=== PATIENT | male | born 1945 | race Caucasian/White ===

== ENCOUNTER 2017-08-29 14:04 | Observation (INO) ==
[2017-08-29] MEDS ORDERED: NITROGLYCERIN SL 0.4 MG TABLET SL PRN (14:24)
[2017-08-29] MEDS ORDERED: NITROGLYCERIN 2% OINT 1 INCH/GM PACK TOP STA (14:24)
[2017-08-29] MEDS ORDERED: ASPIRIN 325 MG TABLET PO STA (14:24)
[2017-08-29] MEDS ORDERED: ENOXAPARIN 100 MG/ML SYRINGE SUBCUT STA (14:24)
[2017-08-29] MEDS ORDERED: ASPIRIN 325 MG TABLET ONE (14:30)
[2017-08-29] MEDS ORDERED: NITROGLYCERIN 2% OINT 1 INCH/GM PACK TOP ONE (14:30)
[2017-08-29] MEDS ORDERED: NITROGLYCERIN SL 0.4 MG TABLET SL ONE (14:30)
[2017-08-29] MEDS ORDERED: ENOXAPARIN 100 MG/ML SYRINGE SUBCUT ONE (14:30)
[2017-08-29 14:48] LABS: Basophils % 0.7 % (0.0-0.8); Eosinophils # 0.1 10*3/uL (0.0-0.87); Eosinophils % 1.3 % (0.00-10.9); Hematocrit 43.7 VOL% (42.0-52.0); Immature Granulocytes % 0.8 %; Immature Granulocytes Absolute 0.05 #; Lymphocytes # 2.4 10*3/uL (1.4-4.0); Lymphocytes % 38.3 % (21.2-54.2); Mean Corpuscular HGB Conc 34.3 GM/DL (32-36); Mean Corpuscular Hemoglobin 32 PG (27-34); Mean Platelet Volume 9.4 FL (9.6-12.0); Monocytes # 0.6 10*3/uL (0.11-0.8); Monocytes % 10.3 % (1.7-12.7); Neutrophils % 48.6 % (38.7-73.9); Platelet Count 227 T/CUMM (130-400); Red Cell Distribution Width 13.2 % (9.3-17.3); White Blood Count 6.1 T/CUMM (4-12)
[2017-08-29 15:17] LABS: Albumin 3.7 G/DL (3.4-5.0); Bilirubin,Total 0.4 MG/DL (0.2-1.0); Calcium 9.2 MG/DL (8.5-10.1); Osmolality,Calculated 277.5 MOS/KG (273-304); Potassium 4.3 MMOL/L (3.5-5.1); Total Protein 7.9 G/DL (6.4-8.3)
[2017-08-29] MEDS ORDERED: MAGNESIUM SULF RIDER 2 GM in PREMIX 1 EACH IV PRN (15:25)
[2017-08-29] MEDS ORDERED: ACETAMINOPHEN 325 MG TABLET PO PRN ×2 (15:25→16:35)
[2017-08-29] MEDS ORDERED: MAGNESIUM SULF RIDER 4 GM in PREMIX 1 EACH IV PRN (15:25)
[2017-08-29] MEDS ORDERED: ONDANSETRON 4 MG/2 ML VIAL IV PRN (15:25)
[2017-08-29] MEDS ORDERED: MAGNESIUM HYDROXIDE SUSP 30 ML UDCUP PO PRN (17:45)
[2017-08-29] MEDS ORDERED: hydrALAZINE 20 MG/1 ML VIAL IV PRN (17:45)
[2017-08-29] MEDS ORDERED: ZALEPLON 5 MG CAPSULE PO PRN (17:45)
[2017-08-29] MEDS ORDERED: diphenhydrAMINE CAP 25 MG CAPSULE PO PRN (17:45)
[2017-08-29] MEDS ORDERED: INFLUENZA VIRUS VACCINE 0.5 ML SYRINGE IM ONE (17:51)
[2017-08-29] MEDS: CARVEDILOL 3.125 MG TABLET PO SCH (18:06)
[2017-08-29 19:07] LABS: Troponin I Only 0.113 NG/ML (0.00-0.045)
[2017-08-29] MEDS: ROSUVASTATIN 20 MG TABLET PO SCH (20:57)
[2017-08-29] MEDS: LISINOPRIL 10 MG TABLET PO SCH (20:57)
[2017-08-29] MEDS: BRIMONIDINE/TIMOLOL OPH SOLN 5 ML BOTTLE BOTH EYES SCH (20:59)
[2017-08-29] MEDS: TRAVOPROST 0.004% OPH SOLN 2.5 ML BOTTLE BOTH EYES SCH (20:59)
[2017-08-30 01:23] LABS: Troponin I Only 0.071 NG/ML (0.00-0.045)
[2017-08-30 03:55] LABS: Basophils # 0.1 10*3/uL (0.0-0.2); Basophils % 0.8 % (0.0-0.8); Eosinophils # 0.1 10*3/uL (0.0-0.87); Eosinophils % 1.3 % (0.00-10.9); Hematocrit 38.8 VOL% (42.0-52.0); Hemoglobin 13.2 GM/DL (14.0-18.0); Immature Granulocytes Absolute 0.06 #; Lymphocytes # 2.7 10*3/uL (1.4-4.0); Lymphocytes % 45.5 % (21.2-54.2); Mean Corpuscular Hemoglobin 32 PG (27-34); Mean Corpuscular Volume 93.5 FL (87-102); Mean Platelet Volume 9.7 FL (9.6-12.0); Monocytes # 0.7 10*3/uL (0.11-0.8); Neutrophils # 2.4 10*3/uL (1.4-7.4); Neutrophils % 39.4 % (38.7-73.9); Platelet Count 194 T/CUMM (130-400); Red Blood Count 4.15 MC/CUMM (3.8-5.5); Red Cell Distribution Width 13.2 % (9.3-17.3)
[2017-08-30 04:55] LABS: Osmolality,Calculated 276.5 MOS/KG (273-304); Potassium 4.2 MMOL/L (3.5-5.1)
[2017-08-30] MEDS ORDERED: diphenhydrAMINE CAP 25 MG CAPSULE PO ONE (07:00)
[2017-08-30] MEDS ORDERED: DIAZEPAM 5 MG TABLET PO ONE (07:00)
[2017-08-30] MEDS: LISINOPRIL 10 MG TABLET PO SCH ×3 (07:33→21:29)
[2017-08-30] MEDS: CARVEDILOL 3.125 MG TABLET PO SCH ×2 (07:33→10:39)
[2017-08-30] MEDS: AMIODARONE 200 MG TABLET PO SCH ×2 (07:33→10:38)
[2017-08-30] MEDS ORDERED: NITROGLYCERIN DRIP 50 MG/250 ML BOTTLE IV ONE (07:49)
[2017-08-30] MEDS ORDERED: fentaNYL 100 MCG/2 ML VIAL ONE (07:49)
[2017-08-30] MEDS ORDERED: MIDAZOLAM 2 MG/2 ML VIAL ONE (07:49)
[2017-08-30] MEDS ORDERED: VERAPAMIL 5 MG/2 ML VIAL ONE (07:50)
[2017-08-30 07:51] LABS: Troponin I Only 0.027 NG/ML (0.00-0.045)
[2017-08-30] MEDS ORDERED: ENOXAPARIN 60 MG/0.6 ML SYRINGE ONE (07:55)
[2017-08-30] MEDS ORDERED: EPTIFIBATIDE 20,000 MCG/10 ML VIAL ONE (08:04)
[2017-08-30] MEDS ORDERED: ASPIRIN CHEW 81 MG TABLET PO ONE (08:25)
[2017-08-30] MEDS ORDERED: TICAGRELOR 90 MG TABLET ONE (08:25)
[2017-08-30] MEDS: MULTIVITAMIN (CENTRUM) TABLET PO SCH (10:08)
[2017-08-30] MEDS: PANTOPRAZOLE 40 MG TABLET PO SCH (10:08)
[2017-08-30] MEDS: SODIUM CHLORIDE 0.45% 1,000 ML IV SCH ×2 (10:08→17:40)
[2017-08-30] MEDS: ASPIRIN EC 81 MG TABLET PO SCH (10:08)
[2017-08-30] MEDS: BRIMONIDINE/TIMOLOL OPH SOLN 5 ML BOTTLE BOTH EYES SCH ×2 (10:38→21:32)
[2017-08-30] MEDS: TICAGRELOR 90 MG TABLET PO SCH ×2 (10:38→21:29)
[2017-08-30 10:48] LABS: Troponin I Only 0.037 NG/ML (0.00-0.045)
[2017-08-30 16:29] LABS: Troponin I Only 0.084 NG/ML (0.00-0.045)
[2017-08-30] MEDS: ROSUVASTATIN 20 MG TABLET PO SCH (21:30)
[2017-08-30] MEDS: TRAVOPROST 0.004% OPH SOLN 2.5 ML BOTTLE BOTH EYES SCH (21:32)
[2017-08-31 05:11] LABS: Basophils % 0.5 % (0.0-0.8); Eosinophils # 0.1 10*3/uL (0.0-0.87); Eosinophils % 1.4 % (0.00-10.9); Hematocrit 38.9 VOL% (42.0-52.0); Hemoglobin 13.4 GM/DL (14.0-18.0); Immature Granulocytes % 0.9 %; Immature Granulocytes Absolute 0.07 #; Lymphocytes % 25.1 % (21.2-54.2); Mean Corpuscular HGB Conc 34.4 GM/DL (32-36); Mean Corpuscular Hemoglobin 32 PG (27-34); Mean Corpuscular Volume 93.7 FL (87-102); Mean Platelet Volume 9.7 FL (9.6-12.0); Monocytes % 12.2 % (1.7-12.7); Neutrophils # 4.7 10*3/uL (1.4-7.4); Neutrophils % 59.9 % (38.7-73.9); Platelet Count 196 T/CUMM (130-400); Red Blood Count 4.15 MC/CUMM (3.8-5.5); Red Cell Distribution Width 13.2 % (9.3-17.3); White Blood Count 7.9 T/CUMM (4-12)
[2017-08-31 05:45] LABS: Calcium 8.6 MG/DL (8.5-10.1); Osmolality,Calculated 277.4 MOS/KG (273-304)
[2017-08-31] MEDS: LISINOPRIL 10 MG TABLET PO SCH (08:38)
[2017-08-31] MEDS: PANTOPRAZOLE 40 MG TABLET PO SCH (08:38)
[2017-08-31] MEDS: AMIODARONE 200 MG TABLET PO SCH (08:39)
[2017-08-31] MEDS: TICAGRELOR 90 MG TABLET PO SCH (08:39)
[2017-08-31] MEDS: MULTIVITAMIN (CENTRUM) TABLET PO SCH (08:39)
[2017-08-31] MEDS: BRIMONIDINE/TIMOLOL OPH SOLN 5 ML BOTTLE BOTH EYES SCH (08:40)
[2017-08-31] MEDS: ASPIRIN EC 81 MG TABLET PO SCH (08:45)
[2017-08-31 11:53] VITALS: BP 154/100
== END 2017-08-31 14:28 | disposition home or self-care (01) ==
LOC: N.EDINP 14:04 → N.ED 14:04 → N.TELEN 17:29
PROVIDERS: ADMIT Internal Medicine Interventional Cardiology; ATTEND Internal Medicine Interventional Cardiology
PROC: CLCCHCL (ICD-10-PCS; 2017-08-30 08:15)

== ENCOUNTER 2019-05-22 23:30 | Observation (INO) ==
[2019-05-23] MEDS ORDERED: ASPIRIN 325 MG TABLET PO STA (00:17)
[2019-05-23 00:46] LABS: Basophils % 0.4 % (0.0-0.8); Hematocrit 39.7 VOL% (42.0-52.0); Hemoglobin 12.7 GM/DL (14.0-18.0); Immature Granulocytes % 0.6 %; Immature Granulocytes Absolute 0.04 #; Lymphocytes # 0.9 10*3/uL (1.4-4.0); Lymphocytes % 12.6 % (21.2-54.2); Mean Corpuscular Volume 95.9 FL (87-102); Mean Platelet Volume 9.4 FL (9.6-12.0); Monocytes % 1.3 % (1.7-12.7); Neutrophils % 85.1 % (38.7-73.9); Platelet Count 203 T/CUMM (130-400); Red Blood Count 4.14 MC/CUMM (3.8-5.5); Red Cell Distribution Width 13.2 % (9.3-17.3); White Blood Count 6.9 T/CUMM (4-12)
[2019-05-23 00:50] LABS: PT Patient Result 11.1 SECS; Partial Thromboplastin Time 25.4 SECS (0-40)
[2019-05-23 01:12] LABS: Alanine Aminotransferase 24 U/L (16-61); Albumin 3.6 G/DL (3.4-5.0); Alkaline Phosphatase 103 U/L (45-117); Aspartate Amino Transferase 27 U/L (0-37); Blood Urea Nitrogen 22 MG/DL (7-18); Calcium 9.1 MG/DL (8.5-10.1); Glucose 122 MG/DL (74-106); Total Protein 7.4 G/DL (6.4-8.3)
[2019-05-23 02:35] LABS: Apearance,Urine CLEAR (Clear); Bilirubin,Urine Negative (Negative); Blood, Urine Negative (Negative); Glucose,Urine (UA) Negative (Negative); Hyaline Casts,Urine 3 /LPF (0-3); Ketones,Urine 5 mg/dL (Negative); Mucus,Urine Occasional /LPF (Occasional); Nitrite,Urine Negative (Negative); Protein,Urine Negative; RBC,Urine 3 /HPF (0-4); Urine Color Yellow (Yellow); Urine Urobilinogen < 2.0 EU/DL (0.2-1.0); WBC,Urine <1 /HPF (0-6)
[2019-05-23] MEDS ORDERED: MORPHINE 4 MG/1 ML VIAL IV PRN (02:36)
[2019-05-23] MEDS ORDERED: ONDANSETRON 4 MG/2 ML VIAL IV PRN (02:36)
[2019-05-23] MEDS ORDERED: ACETAMINOPHEN 325 MG TABLET PO PRN (02:36)
[2019-05-23 02:39] LABS: Barbiturates Screen,Urine Negative (Negative); Benzodiazepines Screen,Urine Negative (Negative); Cannabinoid Screen,Urine Negative (Negative); Opiate Screen,Urine Negative (Negative); Phencyclidine Screen,Urine Negative (Negative)
[2019-05-23] MEDS: SODIUM CHLORIDE 0.9% 1,000 ML IV SCH (03:20)
[2019-05-23] MEDS: ENOXAPARIN 40 MG/0.4 ML SYRINGE SUBCUT SCH (03:26)
[2019-05-23 04:52] LABS: Basophils % 0.3 % (0.0-0.8); Hematocrit 37.5 VOL% (42.0-52.0); Hemoglobin 12.1 GM/DL (14.0-18.0); Immature Granulocytes % 0.8 %; Immature Granulocytes Absolute 0.05 #; Lymphocytes # 0.9 10*3/uL (1.4-4.0); Lymphocytes % 15.3 % (21.2-54.2); Mean Corpuscular HGB Conc 32.3 GM/DL (32-36); Mean Corpuscular Volume 95.7 FL (87-102); Mean Platelet Volume 9.7 FL (9.6-12.0); Monocytes % 1.8 % (1.7-12.7); Neutrophils % 81.8 % (38.7-73.9); Platelet Count 203 T/CUMM (130-400); Red Blood Count 3.92 MC/CUMM (3.8-5.5); Red Cell Distribution Width 13.1 % (9.3-17.3); White Blood Count 6.1 T/CUMM (4-12)
[2019-05-23 05:20] LABS: Albumin 3.1 G/DL (3.4-5.0); Bilirubin,Total 0.5 MG/DL (0.2-1.0); Calcium 8.7 MG/DL (8.5-10.1); Osmolality,Calculated 288.1 MOS/KG (273-304); Risk Ratio 3.5; Total Protein 7.1 G/DL (6.4-8.3); VLDL CHOLESTEROL 13.8 MG/DL
[2019-05-23] MEDS ORDERED: NITROGLYCERIN SL 0.4 MG TABLET SL PRN (07:55)
[2019-05-23] MEDS ORDERED: NON-FORMULARY MEDICATION (Magnesium Oxide 400 MG) PO SCH (09:00)
[2019-05-23] MEDS: BRIMONIDINE/TIMOLOL OPH SOLN 5 ML BOTTLE BOTH EYES SCH ×2 (09:15→21:03)
[2019-05-23] MEDS: DOXAZOSIN 1 MG TABLET PO SCH (09:18)
[2019-05-23] MEDS: COENZYME Q10 100 MG CAPSULE PO SCH (09:18)
[2019-05-23] MEDS: DOCUSATE SODIUM 100 MG CAPSULE PO SCH ×2 (09:18→21:03)
[2019-05-23] MEDS: ASPIRIN EC 81 MG TABLET PO SCH (09:18)
[2019-05-23] MEDS: PANTOPRAZOLE 40 MG TABLET PO SCH (09:18)
[2019-05-23] MEDS: LISINOPRIL 10 MG TABLET PO SCH ×2 (09:18→21:03)
[2019-05-23] MEDS: MULTIVITAMIN (CENTRUM) TABLET PO SCH (09:18)
[2019-05-23] MEDS ORDERED: BISACODYL 5 MG TABLET PO ONE (12:00)
[2019-05-23] MEDS ORDERED: POLYETHYLENE GLYCOL 3350/ELECTROLYTES 4,000 ML BOTTLE PO ONE (18:00)
[2019-05-23] MEDS ORDERED: AMIODARONE 200 MG TABLET PO SCH (21:00)
[2019-05-23] MEDS ORDERED: ROSUVASTATIN 20 MG TABLET PO SCH (21:00)
[2019-05-23] MEDS ORDERED: TRAVOPROST 0.004% OPH SOLN 2.5 ML BOTTLE BOTH EYES SCH (21:00)
[2019-05-23] MEDS ORDERED: METOCLOPRAMIDE 10 MG/2 ML VIAL IV ONE (22:04)
[2019-05-24] MEDS ORDERED: POLYETHYLENE GLYCOL 3350/ELECTROLYTES 4,000 ML BOTTLE PO ONE (06:00)
[2019-05-24 06:03] LABS: PT Patient Result 10.9 SECS
[2019-05-24] MEDS ORDERED: LACTATED RINGERS 1,000 ML IV SCH (08:00)
[2019-05-24] MEDS ORDERED: GLYCOPYRROLATE 0.4 MG/2 ML VIAL ONE (09:00)
[2019-05-24] MEDS ORDERED: LIDOCAINE 2% 5 ML VIAL ONE (09:00)
[2019-05-24] MEDS ORDERED: MAGNESIUM OXIDE 400 MG TABLET PO SCH (09:00)
[2019-05-24] MEDS ORDERED: PROPOFOL 200 MG/20 ML VIAL IV ONE (09:00)
[2019-05-24] MEDS: ASPIRIN EC 81 MG TABLET PO SCH (09:12)
[2019-05-24] MEDS: ENOXAPARIN 40 MG/0.4 ML SYRINGE SUBCUT SCH (09:13)
[2019-05-24] MEDS: DOXAZOSIN 1 MG TABLET PO SCH (09:22)
[2019-05-24] MEDS: LISINOPRIL 10 MG TABLET PO SCH (09:23)
[2019-05-24] MEDS: PANTOPRAZOLE 40 MG TABLET PO SCH (09:27)
[2019-05-24] MEDS: DOCUSATE SODIUM 100 MG CAPSULE PO SCH (09:27)
[2019-05-24] MEDS: COENZYME Q10 100 MG CAPSULE PO SCH (09:27)
[2019-05-24] MEDS: MULTIVITAMIN (CENTRUM) TABLET PO SCH (09:27)
[2019-05-24] MEDS: BRIMONIDINE/TIMOLOL OPH SOLN 5 ML BOTTLE BOTH EYES SCH (09:28)
[2019-05-24] MEDS: SODIUM CHLORIDE 0.9% 1,000 ML IV SCH (09:32)
[2019-05-24 11:55] VITALS: BP 96/54
== END 2019-05-24 12:48 | disposition home or self-care (01) ==
LOC: N.EDINP 23:30 → N.ED 23:30 → N.4E 05-23 02:20
PROVIDERS: ADMIT Family Medicine; ATTEND Family Medicine

== ENCOUNTER 2020-07-28 13:53 | Inpatient (IN) ==
[2020-07-28 14:16] LABS: Basophils % 0.5 % (0.0-0.8); Eosinophils % 0.5 % (0.00-10.9); Hemoglobin 13.7 GM/DL (14.0-18.0); Immature Granulocytes % 1.4 %; Immature Granulocytes Absolute 0.08 #; Lymphocytes # 1.8 10*3/uL (1.4-4.0); Lymphocytes % 32.6 % (21.2-54.2); Mean Corpuscular HGB Conc 33.4 GM/DL (32-36); Mean Corpuscular Volume 95.3 FL (87-102); Mean Platelet Volume 9.2 FL (9.6-12.0); Monocytes % 9.1 % (1.7-12.7); Neutrophils % 55.9 % (38.7-73.9); Platelet Count 186 T/CUMM (130-400); Red Cell Distribution Width 13.4 % (9.3-17.3); White Blood Count 5.6 T/CUMM (4-12)
[2020-07-28 14:27] LABS: PT Patient Result 10.9 SECS (9.8-11.9); Partial Thromboplastin Time 27.9 SECS (23.9-33.8)
[2020-07-28 14:37] LABS: Albumin 3.6 G/DL (3.4-5.0); Bilirubin,Total 0.7 MG/DL (0.2-1.0); Calcium 8.7 MG/DL (8.5-10.1); Osmolality,Calculated 278.4 MOS/KG (273-304); Total Protein 7.6 G/DL (6.4-8.3)
[2020-07-28] MEDS ORDERED: DEXAMETHASONE 4 MG/1 ML VIAL IM STA (18:21)
[2020-07-28] MEDS ORDERED: diphenhydrAMINE 50 MG/1 ML VIAL IV STA (18:22)
[2020-07-28] MEDS ORDERED: NITROGLYCERIN SL 0.4 MG TABLET SL PRN (21:45)
[2020-07-28] MEDS ORDERED: ACETAMINOPHEN 325 MG TABLET PO PRN (21:45)
[2020-07-28] MEDS ORDERED: ONDANSETRON 4 MG/2 ML VIAL IV PRN (21:45)
[2020-07-28] MEDS ORDERED: NON-FORMULARY MEDICATION (Omeprazole 20 mg capsule,delayed release(DR/EC)) PO PRN (21:45)
[2020-07-28 23:04] LABS: Troponin I < 0.015 NG/ML (0.00-0.045)
[2020-07-28] MEDS: AMIODARONE 200 MG TABLET PO SCH (23:45)
[2020-07-28] MEDS: PSEUDOEPHEDRINE 30 MG TABLET PO SCH (23:45)
[2020-07-28] MEDS: TRAVOPROST 0.004% OPH SOLN 2.5 ML BOTTLE BOTH EYES SCH (23:45)
[2020-07-28] MEDS: AZELASTINE NASAL 137 MCG/SPRAY 30 ML BOTTLE BOTH NARES SCH (23:45)
[2020-07-28] MEDS: BRIMONIDINE/TIMOLOL OPH SOLN 5 ML BOTTLE BOTH EYES SCH (23:45)
[2020-07-28] MEDS: DOCUSATE SODIUM 100 MG CAPSULE PO SCH (23:45)
[2020-07-28] MEDS: SENNA 8.6 MG TABLET PO SCH (23:45)
[2020-07-28] MEDS: ATORVASTATIN 40 MG TABLET PO SCH (23:45)
[2020-07-29 04:13] LABS: Troponin I < 0.015 NG/ML (0.00-0.045)
[2020-07-29 06:14] LABS: Troponin I < 0.015 NG/ML (0.00-0.045)
[2020-07-29] MEDS ORDERED: SIMETHICONE CHEW 125 MG TABLET PO PRN (08:21)
[2020-07-29] MEDS ORDERED: diphenhydrAMINE CAP 25 MG CAPSULE PO PRN (08:21)
[2020-07-29] MEDS ORDERED: ALUMINUM/MAGNES/SIMETH MAX STR 30 ML UDCUP PO PRN (08:21)
[2020-07-29] MEDS ORDERED: guaiFENesin/DM ER 600-30 MG TABLET PO PRN (08:21)
[2020-07-29] MEDS ORDERED: POTASSIUM CHLORIDE 20 MEQ TABLET PO PRN (08:21)
[2020-07-29] MEDS ORDERED: MAGNESIUM SULF RIDER 4 GM in PREMIX 1 EACH IV PRN (08:21)
[2020-07-29] MEDS ORDERED: CALCIUM CARBONATE CHEW 500 MG TABLET PO PRN (08:21)
[2020-07-29] MEDS ORDERED: MORPHINE 4 MG/1 ML VIAL IV PRN (08:21)
[2020-07-29] MEDS ORDERED: LACTULOSE 20 GM/30 ML UDCUP PO PRN (08:21)
[2020-07-29] MEDS ORDERED: hydrALAZINE 20 MG/1 ML VIAL IV PRN (08:21)
[2020-07-29] MEDS ORDERED: MAGNESIUM SULF RIDER 2 GM in PREMIX 1 EACH IV PRN (08:21)
[2020-07-29] MEDS ORDERED: ZALEPLON 5 MG CAPSULE PO PRN (08:21)
[2020-07-29] MEDS ORDERED: DOCUSATE SODIUM 100 MG CAPSULE ONE (08:25)
[2020-07-29] MEDS ORDERED: ASPIRIN EC 81 MG TABLET PO ONE (08:25)
[2020-07-29] MEDS ORDERED: MAGNESIUM OXIDE 400 MG TABLET ONE (08:25)
[2020-07-29] MEDS ORDERED: PANTOPRAZOLE 40 MG TABLET PO ONE (08:25)
[2020-07-29] MEDS: lisinopriL 20 MG TABLET PO SCH (08:53)
[2020-07-29] MEDS: MULTIVITAMIN (CENTRUM) TABLET PO SCH (08:53)
[2020-07-29] MEDS: COENZYME Q10 100 MG CAPSULE PO SCH (08:53)
[2020-07-29] MEDS: MAGNESIUM OXIDE 400 MG TABLET PO SCH (08:53)
[2020-07-29] MEDS: ASPIRIN EC 81 MG TABLET PO SCH (08:53)
[2020-07-29] MEDS: DOCUSATE SODIUM 100 MG CAPSULE PO SCH ×2 (08:53→21:48)
[2020-07-29] MEDS: DOXAZOSIN 1 MG TABLET PO SCH (08:53)
[2020-07-29] MEDS: PANTOPRAZOLE 40 MG TABLET PO SCH (08:53)
[2020-07-29] MEDS: PSEUDOEPHEDRINE 30 MG TABLET PO SCH ×2 (08:57→21:47)
[2020-07-29] MEDS: BRIMONIDINE/TIMOLOL OPH SOLN 5 ML BOTTLE BOTH EYES SCH ×2 (08:58→21:49)
[2020-07-29] MEDS: AZELASTINE NASAL 137 MCG/SPRAY 30 ML BOTTLE BOTH NARES SCH ×2 (08:58→21:49)
[2020-07-29] MEDS ORDERED: ENOXAPARIN 40 MG/0.4 ML SYRINGE ONE (09:30)
[2020-07-29] MEDS: ENOXAPARIN 40 MG/0.4 ML SYRINGE SUBCUT SCH (09:32)
[2020-07-29] MEDS: SENNA 8.6 MG TABLET PO SCH (21:48)
[2020-07-29] MEDS: ATORVASTATIN 40 MG TABLET PO SCH (21:48)
[2020-07-29] MEDS: AMIODARONE 200 MG TABLET PO SCH (21:48)
[2020-07-29] MEDS: TRAVOPROST 0.004% OPH SOLN 2.5 ML BOTTLE BOTH EYES SCH (21:49)
[2020-07-30 06:32] LABS: Basophils % 0.1 % (0.0-0.8); Eosinophils % 0.1 % (0.00-10.9); Hematocrit 37.6 VOL% (42.0-52.0); Hemoglobin 12.4 GM/DL (14.0-18.0); Immature Granulocytes % 1.3 %; Lymphocytes # 1.9 10*3/uL (1.4-4.0); Lymphocytes % 23.6 % (21.2-54.2); Mean Corpuscular Volume 95.4 FL (87-102); Mean Platelet Volume 9.9 FL (9.6-12.0); Monocytes % 8.6 % (1.7-12.7); Neutrophils % 66.3 % (38.7-73.9); Platelet Count 216 T/CUMM (130-400); Red Blood Count 3.94 MC/CUMM (3.8-5.5); Red Cell Distribution Width 13.3 % (9.3-17.3); White Blood Count 7.9 T/CUMM (4-12)
[2020-07-30] MEDS ORDERED: DIAZEPAM 5 MG TABLET PO ONE (07:00)
[2020-07-30] MEDS ORDERED: VANCOMYCIN 500 MG VIAL IRRIG ONE (07:00)
[2020-07-30] MEDS ORDERED: VANCOMYCIN INJ 1,000 MG in SODIUM CHLORIDE 0.9% 250 ML IV ONE (07:00)
[2020-07-30] MEDS ORDERED: diphenhydrAMINE CAP 25 MG CAPSULE PO ONE (07:00)
[2020-07-30 07:01] LABS: Osmolality,Calculated 281.4 MOS/KG (273-304); Risk Ratio 2.88; Thyroid Stimulating Hormone 4.08 uIU/ml (0.358-3.74); VLDL CHOLESTEROL 19.8 MG/DL
[2020-07-30] MEDS ORDERED: VANCOMYCIN 500 MG VIAL ONE ×2 (07:37)
[2020-07-30] MEDS ORDERED: fentaNYL 100 MCG/2 ML VIAL ONE (07:41)
[2020-07-30] MEDS ORDERED: MIDAZOLAM 2 MG/2 ML VIAL ONE ×2 (07:41→09:07)
[2020-07-30] MEDS ORDERED: TISSUE ADHESIVE 1 EACH APPLICATOR TOP ONE (07:57)
[2020-07-30] MEDS: ENOXAPARIN 40 MG/0.4 ML SYRINGE SUBCUT SCH (10:42)
[2020-07-30] MEDS: DOCUSATE SODIUM 100 MG CAPSULE PO SCH (10:43)
[2020-07-30] MEDS: lisinopriL 20 MG TABLET PO SCH (11:16)
[2020-07-30] MEDS: DOXAZOSIN 1 MG TABLET PO SCH (11:17)
[2020-07-30] MEDS: MULTIVITAMIN (CENTRUM) TABLET PO SCH (11:18)
[2020-07-30] MEDS: MAGNESIUM OXIDE 400 MG TABLET PO SCH (11:18)
[2020-07-30] MEDS: COENZYME Q10 100 MG CAPSULE PO SCH (11:18)
[2020-07-30] MEDS: PANTOPRAZOLE 40 MG TABLET PO SCH (11:19)
[2020-07-30] MEDS: ASPIRIN EC 81 MG TABLET PO SCH (11:19)
[2020-07-30] MEDS: AZELASTINE NASAL 137 MCG/SPRAY 30 ML BOTTLE BOTH NARES SCH ×2 (11:19→21:40)
[2020-07-30] MEDS: BRIMONIDINE/TIMOLOL OPH SOLN 5 ML BOTTLE BOTH EYES SCH ×2 (11:20→21:40)
[2020-07-30] MEDS: PSEUDOEPHEDRINE 30 MG TABLET PO SCH ×2 (12:34→21:37)
[2020-07-30] MEDS: SENNA 8.6 MG TABLET PO SCH (21:37)
[2020-07-30] MEDS: ATORVASTATIN 40 MG TABLET PO SCH (21:39)
[2020-07-30] MEDS: AMIODARONE 200 MG TABLET PO SCH (21:40)
[2020-07-30] MEDS: TRAVOPROST 0.004% OPH SOLN 2.5 ML BOTTLE BOTH EYES SCH (21:40)
[2020-07-31 06:15] LABS: Basophils % 0.3 % (0.0-0.8); Eosinophils % 0.3 % (0.00-10.9); Hematocrit 39.2 VOL% (42.0-52.0); Hemoglobin 12.5 GM/DL (14.0-18.0); Immature Granulocytes % 1.4 %; Lymphocytes # 2.3 10*3/uL (1.4-4.0); Lymphocytes % 32.7 % (21.2-54.2); Mean Corpuscular HGB Conc 31.9 GM/DL (32-36); Mean Corpuscular Volume 97.3 FL (87-102); Mean Platelet Volume 9.4 FL (9.6-12.0); Monocytes % 8.4 % (1.7-12.7); Neutrophils % 56.9 % (38.7-73.9); Platelet Count 189 T/CUMM (130-400); Red Blood Count 4.03 MC/CUMM (3.8-5.5); Red Cell Distribution Width 13.5 % (9.3-17.3)
[2020-07-31 08:59] LABS: Calcium 8.4 MG/DL (8.5-10.1); Osmolality,Calculated 278.7 MOS/KG (273-304)
[2020-07-31] MEDS: DOXAZOSIN 1 MG TABLET PO SCH (10:07)
[2020-07-31] MEDS: COENZYME Q10 100 MG CAPSULE PO SCH (10:07)
[2020-07-31] MEDS: lisinopriL 20 MG TABLET PO SCH (10:07)
[2020-07-31] MEDS: PANTOPRAZOLE 40 MG TABLET PO SCH (10:07)
[2020-07-31] MEDS: MULTIVITAMIN (CENTRUM) TABLET PO SCH (10:07)
[2020-07-31] MEDS: ASPIRIN EC 81 MG TABLET PO SCH (10:07)
[2020-07-31] MEDS: MAGNESIUM OXIDE 400 MG TABLET PO SCH (10:07)
[2020-07-31] MEDS: AZELASTINE NASAL 137 MCG/SPRAY 30 ML BOTTLE BOTH NARES SCH (10:08)
[2020-07-31] MEDS: BRIMONIDINE/TIMOLOL OPH SOLN 5 ML BOTTLE BOTH EYES SCH (10:08)
[2020-07-31] MEDS: PSEUDOEPHEDRINE 30 MG TABLET PO SCH (10:10)
[2020-07-31 12:37] VITALS: BP 124/80
== END 2020-07-31 12:45 | disposition home or self-care (01) | DRG 242 ==
LOC: N.EDINP 13:53 → N.ED 13:53 → N.TELEN 07-29 13:16
PROVIDERS: ADMIT Family Medicine; ATTEND Family Medicine